=== PATIENT | male | born 1995 | race Caucasian/White ===

== ENCOUNTER 2019-03-13 00:45 | Emergency (ER) | payer OTHER ==
[2019-03-13] MEDS ORDERED: NS(*) 0.9% 1000 ML BAG 1,000 ML IV ONE (00:52)
[2019-03-13] MEDS ORDERED: DIPHTH/TETANUS/ACEL. PERTUSSIS IM ONE (00:55)
[2019-03-13] MEDS ORDERED: ONDANSETRON 4 MG/2 ML VIAL IVP ONE ×2 (00:55→03:10)
[2019-03-13] MEDS ORDERED: KETAMINE HCL-NS 50 MG/5 ML SYR IVP ONE ×3 (01:00→01:45)
--- NOTE | 2019-03-13 01:07 | ER Report ---
History and Physical Time Seen By MD: 00:46 Hx. of Stated Complaint: FELL APPROXIMATELY DOWN AN ELEVATOR SHAFT. LOWER BACK PAIN, LEFT LEG PAIN, LAC TO LEFT ARM. REFUSING IV'S, BEING UNCOOPERATIVE HPI/ROS CHIEF COMPLAINT: Fell 2 stories down elevator shaft HISTORY OF PRESENT ILLNESS: 23-year-old male brought in by EMS in a cervical collar refusing treatment. Patient fell 2 stories down an elevator shaft at [employer]. Patient has a large abrasion on his right flank. He is refusing care. He is attempting to pull the cervical collar off. He is grossly intoxicated with alcohol. There is a large laceration down his left forearm. Patient's agitated and uncooperative. REVIEW OF SYSTEMS: Respiratory: No cough, no dyspnea. Cardiovascular: No chest pain, no palpitations. Gastrointestinal: No vomiting, no abdominal pain. Musculoskeletal: No back pain. Allergies: Coded Allergies: No Known Drug Allergies (Unverified , 03/13/19) Home Meds Active Scripts Amoxicillin/Pot Clav 875-125 Mg Tab (AUGMENTIN 875-125 TABLET) 1 Each Tablet, 1 TAB PO Q12H for infection, #14 TAB TAKE ONE TABLET BY MOUTH EVERY 12 HOURS Prov:CHRISTINE GRIFFITH DO 03/13/19 Hydrocodone Bit/Acetaminophen (HYDROCODON-ACETAMINOPHEN 5-325) 1 Each Tablet, 1 EACH PO Q4-6H for pain, #12 TAKE ONE TABLET BY MOUTH EVERY 4-6 HOURS NEEDED FOR PAIN Prov:CHRISTINE GRIFFITH DO 03/13/19 Constitutional Physical Exam Vital signs stable, afebrile, pulse ox normal General Appearance: The patient is alert, has no immediate need for airway protection and no current signs of toxicity. The patient of the head and neck no obvious trauma or tenderness. The patient's grossly intoxicated with heavily slurred speech HEENT: Pupils equal and round no injection. TMs normal, oropharynx without dental trauma, facial bones intact on palpation Respiratory: Chest is non tender, lungs are clear to auscultation. No chest wall tenderness, but there is a large abrasion and flank contusion up the entire right posterior lateral trunk Cardiac: regular rate and rhythm Gastrointestinal: Abdomen is soft and non tender, no masses, bowel sounds nicolas l. Examination of the parent a.m. reveals a large bruise and hematoma in the left buttocks, posterior scrotal area. There is no penetrating trauma. There is some dried blood noted. Musculoskeletal: Neck: Neck is supple and non tender. Extremities have full range of motion and are non tender. There are some abrasions on the arms. There is a large laceration in the left forearm Skin: No rashes or lesions. Neuro: Alert and oriented, cantankerous and uncooperative. Movement of extremities 4 DIFFERENTIAL DIAGNOSIS: After history and physical exam differential diagnosis was considered for trauma in fall from height including intracranial, spinal, intrathoracic and intra-abdominal injuries. Medical Decision Making Data Points Laboratory Hematology Test 03/13/19 01:07 03/13/19 03:46 Red Blood Count 5.73 M/uL (4.00-5.60) Mean Corpuscular Volume 92.6 fL (80.0-96.0) Mean Corpuscular Hemoglobin 31.2 pg (26.0-33.0) Mean Corpuscular Hemoglobin Concent 33.7 g/dL (32.0-36.0) Red Cell Distribution Width 12.6 % (11.5-14.5) Mean Platelet Volume 7.6 fL (7.2-11.1) Neutrophils (%) (Auto) 48.8 % (39.4-72.5) Lymphocytes (%) (Auto) 41.8 % (17.6-49.6) Monocytes (%) (Auto) 8.1 % (4.1-12.4) Eosinophils (%) (Auto) 0.9 % (0.4-6.7) Basophils (%) (Auto) 0.4 % (0.3-1.4) Nucleated RBC Relative Count (auto) 0.2 /100WBC Neutrophils # (Auto) 4.0 K/uL (2.0-7.4) Lymphocytes # (Auto) 3.4 K/uL (1.3-3.6) Monocytes # (Auto) 0.7 K/uL (0.3-1.0) Eosinophils # (Auto) 0.1 K/uL (0.0-0.5) Basophils # (Auto) 0.0 K/uL (0.0-0.1) Nucleated RBC Absolute Count (auto) 0.02 K/uL Prothrombin Time 13.1 seconds (12.0-14.4) Prothromb Time International Ratio 0.99 Activated Partial Thromboplast Time 25 seconds (23-35) Sodium Level 147 mmol/L (137-145) Potassium Level 4.0 mmol/L (3.5-5.0) Chloride Level 105 mmol/L (98-107) Carbon Dioxide Level 27 mmol/L (22-30) Blood Urea Nitrogen 5 mg/dl (9-21) Creatinine 1.20 mg/dl (0.66-1.25) Glomerular Filtration Rate Calc > 60.0 Random Glucose 108 mg/dl (75-110) Lactate 2.4 mmol/L (0.7-2.1) Calcium Level 8.8 mg/dl (8.4-10.2) Total Bilirubin 0.4 mg/dl (0.2-1.3) Aspartate Amino Transf (AST/SGOT) 39 U/L (0-35) Alanine Aminotransferase (ALT/SGPT) 47 U/L (0-56) Alkaline Phosphatase 55 U/L (0-126) Total Protein 7.4 g/dl (6.3-8.2) Albumin 4.9 g/dl (3.5-5.0) Amylase Level 85 U/L (0-110) Lipase 64 U/L (23-300) Serum Alcohol 295 mg/dl Urine Color Straw Urine Clarity Clear Urine pH 6.0 pH (4.8-9.5) Urine Specific [place] 1.013 Urine Protein 30 mg/dL (NEGATIVE) Urine Glucose (UA) Negative mg/dL (NEGATIVE) Urine Ketones Negative mg/dL (NEGATIVE) Urine Blood Small (NEGATIVE) Urine Nitrite Negative (NEGATIVE) Urine Bilirubin Negative (NEGATIVE) Urine Urobilinogen Negative mg/dL (0.2-1.9) Urine Leukocyte Esterase Negative (NEGATIVE) Urine RBC <1 /HPF (0-2/HPF) Urine WBC <1 /HPF (0-5/HPF) Urine Squamous Epithelial Cells Few /LPF (</=FEW) Urine Bacteria Negative /HPF (NONE-FEW) Urine Mucus None /HPF (NONE-FEW) Urine Opiates Screen Negative Urine Barbiturates Screen Negative Ur Tricyclic Antidepressants Screen Negative Urine Phencyclidine Screen Negative Urine Amphetamines Screen Negative Urine Benzodiazepines Screen Negative Urine Cocaine Screen Negative Urine Cannabinoids Screen Negative Chemistry Test 03/13/19 01:07 03/13/19 03:46 White Blood Count 8.2 k/uL (4.5-11.0) Red Blood Count 5.73 M/uL (4.00-5.60) Hemoglobin 17.9 g/dL (14.0-18.0) Hematocrit 53.1 % (42.0-52.0) Mean Corpuscular Volume 92.6 fL (80.0-96.0) Mean Corpuscular Hemoglobin 31.2 pg (26.0-33.0) Mean Corpuscular Hemoglobin Concent 33.7 g/dL (32.0-36.0) Red Cell Distribution Width 12.6 % (11.5-14.5) Platelet Count 440 K/uL (150-450) Mean Platelet Volume 7.6 fL (7.2-11.1) Neutrophils (%) (Auto) 48.8 % (39.4-72.5) Lymphocytes (%) (Auto) 41.8 % (17.6-49.6) Monocytes (%) (Auto) 8.1 % (4.1-12.4) Eosinophils (%) (Auto) 0.9 % (0.4-6.7) Basophils (%) (Auto) 0.4 % (0.3-1.4) Nucleated RBC Relative Count (auto) 0.2 /100WBC Neutrophils # (Auto) 4.0 K/uL (2.0-7.4) Lymphocytes # (Auto) 3.4 K/uL (1.3-3.6) Monocytes # (Auto) 0.7 K/uL (0.3-1.0) Eosinophils # (Auto) 0.1 K/uL (0.0-0.5) Basophils # (Auto) 0.0 K/uL (0.0-0.1) Nucleated RBC Absolute Count (auto) 0.02 K/uL Prothrombin Time 13.1 seconds (12.0-14.4) Prothromb Time International Ratio 0.99 Activated Partial Thromboplast Time 25 seconds (23-35) Glomerular Filtration Rate Calc > 60.0 Lactate 2.4 mmol/L (0.7-2.1) Calcium Level 8.8 mg/dl (8.4-10.2) Total Bilirubin 0.4 mg/dl (0.2-1.3) Aspartate Amino Transf (AST/SGOT) 39 U/L (0-35) Alanine Aminotransferase (ALT/SGPT) 47 U/L (0-56) Alkaline Phosphatase 55 U/L (0-126) Total Protein 7.4 g/dl (6.3-8.2) Albumin 4.9 g/dl (3.5-5.0) Amylase Level 85 U/L (0-110) Lipase 64 U/L (23-300) Serum Alcohol 295 mg/dl Urine Color Straw Urine Clarity Clear Urine pH 6.0 pH (4.8-9.5) Urine Specific [place] 1.013 Urine Protein 30 mg/dL (NEGATIVE) Urine Glucose (UA) Negative mg/dL (NEGATIVE) Urine Ketones Negative mg/dL (NEGATIVE) Urine Blood Small (NEGATIVE) Urine Nitrite Negative (NEGATIVE) Urine Bilirubin Negative (NEGATIVE) Urine Urobilinogen Negative mg/dL (0.2-1.9) Urine Leukocyte Esterase Negative (NEGATIVE) Urine RBC <1 /HPF (0-2/HPF) Urine WBC <1 /HPF (0-5/HPF) Urine Squamous Epithelial Cells Few /LPF (</=FEW) Urine Bacteria Negative /HPF (NONE-FEW) Urine Mucus None /HPF (NONE-FEW) Urine Opiates Screen Negative Urine Barbiturates Screen Negative Ur Tricyclic Antidepressants Screen Negative Urine Phencyclidine Screen Negative Urine Amphetamines Screen Negative Urine Benzodiazepines Screen Negative Urine Cocaine Screen Negative Urine Cannabinoids Screen Negative Coagulation Test 03/13/19 01:07 Prothrombin Time 13.1 seconds Prothromb Time International Ratio 0.99 Activated Partial Thromboplast Time 25 seconds Toxicology Test 03/13/19 01:07 03/13/19 03:46 Serum Alcohol 295 mg/dl Urine Opiates Screen Negative Urine Barbiturates Screen Negative Ur Tricyclic Antidepressants Screen Negative Urine Phencyclidine Screen Negative Urine Amphetamines Screen Negative Urine Benzodiazepines Screen Negative Urine Cocaine Screen Negative Urine Cannabinoids Screen Negative Urinalysis Test 03/13/19 03:46 Urine Color Straw Urine Clarity Clear Urine pH 6.0 pH (4.8-9.5) Urine Specific [place] 1.013 Urine Protein 30 mg/dL (NEGATIVE) Urine Glucose (UA) Negative mg/dL (NEGATIVE) Urine Ketones Negative mg/dL (NEGATIVE) Urine Blood Small (NEGATIVE) Urine Nitrite Negative (NEGATIVE) Urine Bilirubin Negative (NEGATIVE) Urine Urobilinogen Negative mg/dL (0.2-1.9) Urine Leukocyte Esterase Negative (NEGATIVE) Urine RBC <1 /HPF (0-2/HPF) Urine WBC <1 /HPF (0-5/HPF) Urine Squamous Epithelial Cells Few /LPF (</=FEW) Urine Bacteria Negative /HPF (NONE-FEW) Urine Mucus None /HPF (NONE-FEW) EKG/Imaging Imaging X-ray: Single view portable chest x-ray was obtained. I viewed the images myself on the PACS system. My interpretation of the images is: No infiltrate, no effusion, normal mediastinum, no fractured ribs, no pneumothorax. The radiologist interpretation had no clinically significant variation from this interpretation. Results: CT scan of the head without contrast was obtained. The results of the study are no acute reticulocyte findings. The study was read by the radiologist. I viewed the images myself on the PACS system. Results: CT scan of the C-spine without contrast was obtained. The results of the study are no acute traumatic findings noted. The study was read by the radiologist. I viewed the images myself on the PACS system. Results: CT scan of the chest, abdomen and pelvis with IV contrast was obtained. The results of the study are INDICATION: Fell down an elevator shaft 2 floors, large contusion R. COMPARISON: Same-day chest and pelvis radiographs. TECHNIQUE: Contrast enhanced chest, abdomen and pelvis CT performed during the injection of 75 ml of Isovue 370. Sagittal and coronal reconstructions were performed. One of the following dose optimization techniques was utilized in the performance of this exam: Automated exposure control; adjustment of the mA and/or kV according to the patient's size; or use of an iterative reconstruction technique. Specific details can be referenced in the facility's radiology CT exam operational policy. FINDINGS: CHEST: Thyroid: Normal. Thoracic inlet: Normal. Heart and great vessels: Normal. Mediastinum and nicolas: Normal. Lungs and pleura: Mild atelectasis. No suspicious consolidation, pleural effusion or pneumothorax. Breast and axilla: Mild gynecomastia. ABDOMEN AND PELVIS: Examination mildly limited by artifact from the patient's arms. Liver and hepatic vasculature: Normal. Gallbladder and bile ducts: Normal. Spleen: Irregular morphology of the spleen with some irregular calcification inferiorly, as well as vascular coils near the splenic hilum. Pancreas: Normal. Adrenals: Normal. Kidneys, ureters and bladder: Probable 11 mm cyst in the midportion of the right kidney. No suspicious lesion or evidence of acute trauma. Markedly distended urinary bladder. Retroperitoneum and aorta: Normal. GI tract, mesentery and peritoneum: Normal, including normal appendix. Prostate and seminal vesicles: Normal. Bones and soft tissues: There is inflammatory change, suspected blood products and a small focus of gas in the left perineal/medial thigh soft tissues, axial i mage 226 series 2. No acute osseous abnormality. Os acromiale noted bilaterally incidentally. IMPRESSION: 1. Suspected blood products, inflammation and possible small focus of gas noted in the left perineal/thigh soft tissues. Question blunt force injury or penetrating injury. 2. No definite additional evidence of acute trauma in the chest, abdomen and pelvis. 3. Markedly distended urinary bladder. 4. Irregular appearance of the spleen with vascular coils near the splenic hilum. Question prior splenic injury. No evidence of acute splenic injury. The study was read by the radiologist. I viewed the images myself on the PACS system. ED Course/Re-evaluation Clinical Indication for ER IV: Hydration, IV Access ED Course Patient was admitted to an examination room. H&P was done. The differential diagnoses was considered. On clinical examination. Patient has no evidence of head trauma or neck trauma. His chest has good sounds bilaterally. On primary and secondary exams. His abdomen is benign and unremarkable. Patient's complaining of back pain. There is a large abrasion down his right flank. CT head and neck are unremarkable. Patient's cervical collar is removed. Patient CT scan chest, abdomen, pelvis with IV contrast shows a large perineal hematoma with one spot of deep subcutaneous air of uncertain significance. On close examination of the perineum. There does not appear to be any penetrating wounds. Patient was medicated with ketamine due to his agitation 03/13/2019 6:21:19 am case was discussed with Dr. Keo Sepulveda, general surgery on-call, regarding the deep subcutaneous air noted on CT scan. Procedure: Laceration repair. Verbal consent was obtained from the patient. The 10.0 cm laceration on the left dorsal forearm was anesthetized in the usual fashion. The wound was a deep scratch diagonal in the tissues extending through the dermis. It did not extend into subcutaneous tissue. The wound was scrubbed, draped and explored to its base with a gloved finger.There were no deep structures involved. No tendon injury was identified. The wound was repaired with tony 12. The wound repair was simple. The procedure was performed by myself. Decision to Disposition Date: Mar 13, 2019 Decision to Disposition Time: 02:03 Depart Departure Latest Vital Signs Impression: Primary Impression: Fall from height of greater than 3 feet Additional Impressions: Peritoneal hematoma Laceration of left upper extremity Alcohol intoxication Condition: Improved Disposition: HOME OR SELF-CARE New Scripts Amoxicillin/Pot Clav 875-125 Mg Tab (AUGMENTIN 875-125 TABLET) 1 Each Tablet 1 TAB PO Q12H for infection, #14 TAB TAKE ONE TABLET BY MOUTH EVERY 12 HOURS Prov: CHRISTINE GRIFFITH DO 03/13/19 Hydrocodone Bit/Acetaminophen (HYDROCODON-ACETAMINOPHEN 5-325) 1 Each Tablet 1 EACH PO Q4-6H for pain, #12 TAKE ONE TABLET BY MOUTH EVERY 4-6 HOURS NEEDED FOR PAIN Prov: CHRISTINE GRIFFITH DO 03/13/19 Patient Instructions: Abrasion (ED), Contusion in Adults (ED) Additional Instructions: return to ER for any worseing espesial fever or increased pain Problem Qualifiers Additional Impressions: Laceration of left upper extremity Encounter type: initial encounter Qualified Codes: S41.112A - Laceration without foreign body of left upper arm, initial encounter Alcohol intoxication Complication of substance-induced condition: uncomplicated Qualified Codes: F10.920 - Alcohol use, unspecified with intoxication, uncomplicated CHRISTINE GRIFFITH DO Mar 13, 2019 01:07
[2019-03-13] MEDS ORDERED: IOPAMIDOL 76% 150 ML INFUS BTL 150 ML ONE (01:13)
[2019-03-13 01:20] LABS: PLATELET COUNT, AUTOMATED 440 K/uL (150-450)
--- NOTE | 2019-03-13 01:32 | RADIOLOGY IMAGING REPORT ---
FACILITY: [facility] PATIENT NAME: Nicolas Ruiz : 1995 MR: [id number] V: [id number] EXAM DATE: ORDERING PHYSICIAN: CHRISTINE GRIFFITH TECHNOLOGIST: Location: [facility] [place] Patient: Nicolas Ruiz : 1995 Visit/Account:[id number] Date of Sevice: 03/13/2019 INDICATION: fell 2 stories EXAM DATE: 03/13/2019 12:52 AM COMPARISON: None. FINDINGS: 2 AP images of the pelvis. Mineralization is normal. No acute alignment abnormality or fracture. Soft tissues are unremarkable. IMPRESSION: Normal pelvis. Report Dictated By: Ren Mercado MD at 03/13/2019 1:27 AM Report E-Signed By: Ren Mercado MD at 03/13/2019 1:28 AM WSN:[id number]
--- NOTE | 2019-03-13 01:52 | RADIOLOGY IMAGING REPORT ---
FACILITY: [facility] PATIENT NAME: Nicolas Ruiz : 1995 MR: [id number] V: [id number] EXAM DATE: ORDERING PHYSICIAN: CHRISTINE GRIFFITH [place]CHN[place]: [place] [facility] [place] : 1995 Visit/Account:[id number] Date of Sevice: 03/13/2019 AP CHEST 03/13/2019 12:56 AM. INDICATION: Fell 2 stories in elevator shaft. COMPARISON: None. FINDINGS: Lungs are well-expanded. There is no consolidation. No pleural effusion or pneumothorax. Heart size i s normal. Probable vascular coils over the left upper abdomen. No displaced fracture. IMPRESSION: No acute abnormality. Report Dictated By: Ren Mercado MD at 03/13/2019 1:47 AM Report E-Signed By: Ren Mercado MD at 03/13/2019 1:48 AM WSN:[id number]
[2019-03-13 01:55] LABS: INR 0.99
--- NOTE | 2019-03-13 02:16 | RADIOLOGY IMAGING REPORT ---
FACILITY: [facility] [place] PATIENT NAME: Junior Ruiz : 1995 MR: [id number] V: [id number] EXAM DATE: ORDERING PHYSICIAN: CHRISTINE GRIFFITH TECHNOLOGIST: [place] [facility] [place] Patient: Junior Ruiz : 1995 Visit/Account:[id number] Date of Sevice: 03/13/2019 CT Head without contrast Indication: TRAUMA Comparison: None available. Technique: Axial CT images were obtained through the brain from the skull base to the vertex without administration of IV contrast. One of the following dose optimization techniques was utilized in th e performance of this exam: Automated exposure control; adjustment of the mA and/or kV according to t he patient's size; or use of an iterative reconstruction technique. Specific details can be referen juan in the facility's radiology CT exam operational policy. Findings: No evidence of mass, mass effect, or midline shift. No acute intracranial hemorrhage or acute territorial infarction. Cavum septum pellucidum et vergae incidentally noted. No fracture. Globes and orbits are nonacute. Scleral band on the left. Mild mucosal thickening in the left maxillary sinus. IMPRESSION: No acute intracranial abnormality. Report Dictated By: Ren Mercado MD at 03/13/2019 2:04 AM Report E-Signed By: Ren Mercado MD at 03/13/2019 2:12 AM WSN:[id number]
--- NOTE | 2019-03-13 02:20 | RADIOLOGY IMAGING REPORT ---
FACILITY: [facility] - [place] PATIENT NAME: Junior Ruiz : 1995 MR: [id number] V: [id number] EXAM DATE: ORDERING PHYSICIAN: CHRISTINE GRIFFITH TECHNOLOGIST: Location: [facility] - [place] Patient: Junior Ruiz : 1995 Visit/Account:[id number] Date of Sevice: 03/13/2019 CT cervical spine without contrast INDICATION: TRAUMA. COMPARISON: None. PROCEDURE: Multiplanar noncontrast CT of the cervical spine. One of the following dose optimization techniques was utilized in the performance of this exam: Automated exposure control; adjustment of th e mA and/or kV according to the patient's size; or use of an iterative reconstruction technique. Sp ecific details can be referenced in the facility's radiology CT exam operational policy. FINDINGS: No acute abnormality of cervical vertebral body height and alignment. No cervical spine fracture. T here is no prevertebral soft tissue thickening. C2-3 is fused. Minimal discogenic degenerative change at C3-4. Remaining visualized cervical soft tissues are unremarkable. The airway is patent. The lung apices are clear. IMPRESSION: Negative cervical spine CT. Report Dictated By: Ren Mercado MD at 03/13/2019 2:12 AM Report E-Signed By: Ren Mercado MD at 03/13/2019 2:15 AM WSN:[id number]
--- NOTE | 2019-03-13 02:46 | RADIOLOGY IMAGING REPORT ---
FACILITY: [facility] PATIENT NAME: Junior Ruiz : 1995 MR: [id number] V: [id number] EXAM DATE: ORDERING PHYSICIAN: CHRISTINE GRIFFITH TECHNOLOGIST: Location: [facility] - [place] Patient: Junior Ruiz : 1995 Visit/Account:[id number] Date of Sevice: 03/13/2019 COMPUTED TOMOGRAPHY CHEST, ABDOMEN AND PELVIS WITH INTRAVENOUS CONTRAST DATE OF EXAM: 03/13/2019 12:52 AM. INDICATION: Fell down an elevator shaft 2 floors, large contusion R. COMPARISON: Same-day chest and pelvis radiographs. TECHNIQUE: Contrast enhanced chest, abdomen and pelvis CT performed during the injection of 75 ml of Isovue 370. Sagittal and coronal reconstructions were performed. One of the following dose optimiza tion techniques was utilized in the performance of this exam: Automated exposure control; adjustment of the mA and/or kV according to the patient's size; or use of an iterative reconstruction technique . Specific details can be referenced in the facility's radiology CT exam operational policy. FINDINGS: CHEST: Thyroid: Normal. Thoracic inlet: Normal. Heart and great vessels: Normal. Mediastinum and nicolas: Normal. Lungs and pleura: Mild atelectasis. No suspicious consolidation, pleural effusion or pneumothorax. Breast and axilla: Mild gynecomastia. ABDOMEN AND PELVIS: Examination mildly limited by artifact from the patient's arms. Liver and hepatic vasculature: Normal. Gallbladder and bile ducts: Normal. Spleen: Irregular morphology of the spleen with some irregular calcification inferiorly, as well as vascular coils near the splenic hilum. Pancreas: Normal. Adrenals: Normal. Kidneys, ureters and bladder: Probable 11 mm cyst in the midportion of the right kidney. No suspici ous lesion or evidence of acute trauma. Markedly distended urinary bladder. Retroperitoneum and aorta: Normal. GI tract, mesentery and peritoneum: Normal, including normal appendix. Prostate and seminal vesicles: Normal. Bones and soft tissues: There is inflammatory change, suspected blood products and a small focus of gas in the left perineal/medial thigh soft tissues, axial image 226 series 2. No acute osseous abnor mality. Os acromiale noted bilaterally incidentally. IMPRESSION: 1. Suspected blood products, inflammation and possible small focus of gas noted in the left perineal /thigh soft tissues. Question blunt force injury or penetrating injury. 2. No definite additional evidence of acute trauma in the chest, abdomen and pelvis. 3. Markedly distended urinary bladder. 4. Irregular appearance of the spleen with vascular coils near the splenic hilum. Question prior sp lenic injury. No evidence of acute splenic injury. Dr. Mercado discussed this case with CHRISTINE GRIFFITH on 03/13/2019 2:41 AM. Report Dictated By: Ren Mercado MD at 03/13/2019 2:24 AM Report E-Signed By: Ren Mercado MD at 03/13/2019 2:42 AM WSN:[id number]
[2019-03-13] MEDS ORDERED: LOR5/325 PO (04:40)
[2019-03-13] MEDS ORDERED: CEPH500T7 PO (04:40)
[2019-03-13] MEDS ORDERED: ceFAZolin(*) 2GM/D5W 50ML 50 ML IVPB ONE (05:00)
[2019-03-13 05:25] VITALS: BP 124/51
[2019-03-13] MEDS ORDERED: AMOX-559 PO (06:47)
--- NOTE | 2019-03-13 07:05 | General Surgery Consultation ---
History of Present Illness Requesting Physician Dr. Fraga Reason for Consult Fall down elevator shaft Chief Complaint Fall down elevator shaft History of Present Illness 23-year-old male is brought in the ER by EMS after being intoxicated and following down an elevator shaft. It is estimated he fell from the 3rd floor to the 1st floor. I am able to get a history from the ER provider but not from the patient. When I going to talk to him is very intoxicated and tells me to "F$#@ off." I'm have been asked to consult because of a concern of extraluminal air on CT in the patient's buttock region. History Home Meds Active Scripts Amoxicillin/Pot Clav 875-125 Mg Tab (AUGMENTIN 875-125 TABLET) 1 Each Tablet, 1 TAB PO Q12H for infection, #14 TAB TAKE ONE TABLET BY MOUTH EVERY 12 HOURS Prov:CHRISTINE FRAGA DO 03/13/19 Hydrocodone Bit/Acetaminophen (HYDROCODON-ACETAMINOPHEN 5-325) 1 Each Tablet, 1 EACH PO Q4-6H for pain, #12 TAKE ONE TABLET BY MOUTH EVERY 4-6 HOURS NEEDED FOR PAIN Prov:CHRISTINE FRAGA DO 03/13/19 Discontinued Scripts Cephalexin 500 Mg Tab (KEFLEX 500 MG TAB) 500 Mg Tablet, 500 MG PO Q6H for pprevention of infection, #28 TAB Prov:CHRISTINE FRAGA DO 03/13/19 Allergies: Coded Allergies: No Known Drug Allergies (Unverified , 03/13/19) Review of Systems All Systems Reviewed/Normal: Yes, Except as Noted Exam Vital Signs Vital Signs Date Time Temp Pulse Resp B/P (MAP) Pulse Ox O2 Delivery O2 Flow Rate FiO2 03/13/19 05:25 90 12 124/51 (75) 97 Nasal Cannula 2 03/13/19 00:46 97.9 General Appearance: Other (patient is very intoxicated and somnolent and uncooperative with my exam. I am unable to perform a vast majority of an a dequate trauma examination due to lack of patient participation/cooperation) GI: Abd Soft and Non-Tender, Other (ecchymoses throughout the buttock and perineal region) Extremities: Warm, Perfused Medical Decision Making Data Points Result Diagram: 03/13/1910603/13/19106 Assessment and Plan Problems: (1) Fall Status: Acute Assessment & Plan: I have reviewed the CT scan in detail. I am unable to give an adequate history from the patient or perform an adequate exam but the only injury seen on CT workup which included a CT of his head, CT of his chest abdomen and pelvis, CT C-spine, and plain films of his chest and pelvis is perineal hematoma. There was concern of small amount of gas in perineal tissues but these are all extralevator findings. There are no pelvic findings above the levator muscles and there is no intra-abdominal signs of injury. The amounts of gas, if real, are extremely small. I recommend pain control and could consider 5 days of antibiotics but there are no surgical issues currently. He can follow-up with me in my office as an outpatient if he fails to improve over the next several days. He should return to the emergency room if he develops increasing pain, including abdominal pain, fevers, chills, or other concerning symptoms. (2) Contusion of perineum Status: Acute Condition Stable Time Spent: < 30 min Venous Thromboembolism VTE Risk Physician Assess for VTE Risk: Yes Patient's VTE Risk: Low VTE Diagnostic Test 2 Days Prior to Admit: No Antithrombotics Is Pt On Any Antithrombotics?: No Problem Qualifiers (1) Fall: Encounter type: initial encounter Qualified Codes: W19.XXXA - Unspecified fall, initial encounter LOLIS LEDESMA MD Mar 13, 2019 07:05
== END 2019-03-13 07:27 | disposition home or self-care (01) ==
LOC: ER 01:03
DX: S36.81XA Injury of peritoneum, initial encounter (principal); S51.812A Laceration without foreign body of left forearm, initial encounter; F10.920 Alcohol use, unspecified with intoxication, uncomplicated; Y90.8 Blood alcohol level of 240 mg/100 ml or more; W17.89XA Other fall from one level to another, initial encounter
CPT/HCPCS: 12004; 70450; 71045; 71260; 72125; 72170; 74177; 80305; 80320; 81001; 82150; 83605; 83690; 85025; 85610; 85730; 90471; 90715; 96365; 96375; 96376; 99284; J2405; J3490; J7030; L0172; Q9967; 82040; 82247; 82310; 82374; 82435; 82565; 82947; 84075; 84132; 84155; 84295; 84450; 84460; 84520; J0690

== ENCOUNTER → 2019-03-13 | Outpatient (CLI) | payer OTHER ==
[~2019-03-13] MED LIST: AMOX-559 PO; CEPH500T7 PO; LOR5/325 PO
== END ==
LOC: AMB 00:21
PROVIDERS: ATTEND Nurse Practitioner
DX: M54.5 Low back pain (principal); F10.129 Alcohol abuse with intoxication, unspecified; S40.812A Abrasion of left upper arm, initial encounter; S40.811A Abrasion of right upper arm, initial encounter; S51.812A Laceration without foreign body of left forearm, initial encounter; W13.9XXA Fall from, out of or through building, not otherwise specified, initial encounter
CPT/HCPCS: A0425; A0427